=== PATIENT | female | born 1990 | race Caucasian/White ===

== ENCOUNTER 2024-08-09 17:50 | Emergency (ER) | payer OTHER ==
[2024-08-09] MEDS: Lidocaine 2% with EPINEPHrine 1:100,000 20 ML MDV INJECT ONE (18:34)
[2024-08-09] MEDS: Bacitracin/Neomycin/Polymyxin B Oint 0.9 GM U/D Packet TOP ONE (20:16)
== END 2024-08-09 19:00 | disposition home or self-care (01) ==
LOC: LL.ED 17:50 → SUPCPDRO 17:50 → LL.ED 19:00
DX: S81.011A Laceration without foreign body, right knee, initial encounter (principal); Z79.899 Other long term (current) drug therapy; V86.92XA Unspecified occupant of snowmobile injured in nontraffic accident, initial encounter
CPT/HCPCS: 12002; 99282; 99283; J3490